=== PATIENT | male | born 1940 | race Caucasian/White ===

== ENCOUNTER 2017-03-11 09:10 | Day surgery (SDC) | payer OTHER ==
[~2017-03-11 09:10] MED LIST: CLINDAMYCIN 900 MG/DEXTROSE 50 ML IV ONE; DEXAMETHASONE 4 MG/ML VIAL IVP ONE
[2017-03-11] MEDS ORDERED: LIDOCAINE 1% 2 ML INJ ID PRN (09:34)
[2017-03-11] MEDS ORDERED: LR 1,000 ML IV ONE (09:34)
--- NOTE | 2017-03-11 09:41 | PDHPUP ---
History & Physical Update H&P update statement: This history and physical update is based on an assessment of the patient which was completed after admission or registration (within 24 hours), but prior to the surgery/procedure.
[2017-03-11] MEDS ORDERED: LIDO/EPI 1% **for epidural** 30 ML SDV ONE (09:50)
[2017-03-11] MEDS ORDERED: BUPIVACAINE 0.25% 30 ML SDV ONE (09:51)
[2017-03-11] MEDS ORDERED: CHLORHEXIDINE GLUCONATE 15 ML UDL ONE (09:52)
[2017-03-11] MEDS ORDERED: LIDO/EPI 2%** Not for Epidural 20 ML MDV ONE (09:53)
[2017-03-11] MEDS ORDERED: CLINDAMYCIN 900 MG/DEXTROSE/50 ML BAG IV ONE (09:54)
[2017-03-11] MEDS ORDERED: DEXAMETHASONE 4 MG/ML VIAL ONE ×2 (09:55→10:32)
--- NOTE | 2017-03-11 10:12 | PDANEPAE ---
ANE History of Present Illness excision oral bone lesion ANE Past Medical History - Cardiovascular History Hx Hypertension: No Hx Arrhythmias: No Hx Chest Pain: No Hx Coronary Artery / Peripheral Vascular Disease: No Hx CHF / Valvular Disease: No Hx Palpitations: No Cardiovascular History Comment: CARDIOMYOPATHY. LOW BP WHEN DEHYDRATED - Pulmonary History Hx COPD: No Hx Asthma/Reactive Airway Disease: No Hx Recent Upper Respiratory Infection: No Hx Oxygen in Use at Home: No Hx Sleep Apnea: No Sleep Apnea Screening Result - Last Documented: Positive Pulmonary History Comment: POS SLEEP APNEA W/CPAP - Neurologic History Hx Cerebrovascular Accident: No Hx Seizures: No Hx Dementia: No - Endocrine History Hx Diabetes: No - Renal History Hx Renal Disorders: No Renal History Comment: FREQUENCY - Liver History Hx Hepatic Disorders: Yes Hepatic History Comment: RADHA - Neurological & Psychiatric Hx Hx Neurological and Psychiatric Disorders: No - Cancer History Hx Cancer: No - Congenital Disorder History Hx Congenital Disorders: No - GI History Hx Gastrointestinal Disorders: No - Other Health History Other Health History: ECZEMA - Chronic Pain History Chronic Pain: Yes (NECK & BACK PAIN.) - Surgical History Prior Surgeries: CHOLECYSTECTOMY. COLONSOCOPY ANE Review of Systems Review of systems is: negative Review of Systems: - Exercise capacity Exercise capacity: >=4 METS METS (RN): 4 METS ANE Patient History - Allergies Allergies/Adverse Reactions: Penicillins Allergy (Verified 03/05/17 11:26) DIFFICULTY BREATHING shellfish derived Allergy (Verified 03/05/17 11:26) DIFFICULTY BREATHING Sulfa (Sulfonamide Antibiotics) Allergy (Verified 03/05/17 11:26) DIFFICULTY BREATHING - Home Medications Home medications: home medication list seen and reviewed Home Medications: Benadryl 03/05/17 [Last Taken Unknown] Coreg 03/05/17 [Last Taken 03/11/17 02:30] Herbals/Supplements -Info Only 03/05/17 [Last Taken Unknown] Ibuprofen 03/05/17 [Last Taken Unknown] Melatonin 03/05/17 [Last Taken 03/10/17] - NPO status NPO Status: no food or drink >8 hours NPO Since - Liquids (Date): 03/11/17 NPO Since - Liquids (Time): 07:30 NPO Since - Solids (Date): 03/10/17 NPO Since - Solids (Time): 20:00 - Anes Hx Anes Hx: no prior problems - Smoking Hx Smoking Status: Never smoked - Family Anes Hx Family Anes Hx: none Family Hx Anesthesia Complications: NEG ANE Labs/Vital Signs - Vital Signs Blood Pressure: 128/86 Heart Rate: 77 Respiratory Rate: 18 O2 Sat (%): 95 Height: 177.8 cm Weight: 113.398 kg ANE Physical Exam - Airway Neck exam: FROM Mallampati Score: Class 3 Mouth exam: poor dentition - Pulmonary Pulmonary: no respiratory distress - Cardiovascular Cardiovascular: regular rate and rhythym - ASA Status ASA Status: III ANE Anesthesia Plan Anesthesia Plan: general endotracheal anesthesia
[2017-03-11] MEDS ORDERED: MIDAZOLAM 2 MG/2 ML VIAL IVP ONE (10:21)
[2017-03-11] MEDS ORDERED: PROPOFOL 200 MG/20 ML VIAL ONE (10:32)
[2017-03-11] MEDS ORDERED: ONDANSETRON 4 MG/2 ML VIAL ONE (10:32)
[2017-03-11] MEDS ORDERED: LIDOCAINE 2% 100 MG/5 ML SYR ONE (10:32)
[2017-03-11] MEDS ORDERED: fentaNYL 100 MCG/2 ML INJ ONE (10:32)
[2017-03-11] MEDS ORDERED: ACETAMINOPHEN 500 MG TAB PO PRN (11:03)
[2017-03-11] MEDS ORDERED: HYDROmorphONE/DILAUDID 1 MG/ML INJ IVP PRN (11:03)
[2017-03-11] MEDS ORDERED: DEXAMETHASONE 4 MG/ML VIAL IVP PRN (11:03)
[2017-03-11] MEDS ORDERED: PROMETHAZINE HCL 25 MG/ML INJ IVP PRN (11:03)
[2017-03-11] MEDS ORDERED: fentaNYL 100 MCG/2 ML INJ IVP PRN (11:03)
[2017-03-11] MEDS ORDERED: OXYCODONE/APAP 5/325 TAB PO PRN (11:03)
[2017-03-11] MEDS ORDERED: MEPERIDINE 25 MG/ML SYR IVP PRN (11:03)
[2017-03-11] MEDS ORDERED: ONDANSETRON 4 MG/2 ML VIAL IVP PRN (11:03)
[2017-03-11] MEDS ORDERED: NALOXONE HCL 0.4 MG/ML INJ IVP PRN (11:03)
[2017-03-11] MEDS ORDERED: LABETALOL HCL 5 MG/ML 20 ML MDV IVP PRN (11:03)
[2017-03-11] MEDS ORDERED: HYDROCODONE/APAP 5/325 TAB PO PRN (11:03)
--- NOTE | 2017-03-11 11:06 | POSTANESTH ---
Post Anesthetic Evaluation Cardiovascular Status: Similar to Pre-Op Cond Respiratory Status: Similar to Pre-op Cond. Level of Consciousness/Mental Status: Can Participate in Eval, Mildly Sleepy, Arousable Pain Control: Adequate, Prn Tx Ordered Nausea/Vomiting Control: Adequate, Prn Tx Ordered Complications Possibly Related to Anesthesia: None Noted
--- NOTE | 2017-03-11 12:21 | POSTOPPROG ---
Post Op Note Date of Operation: 03/11/17 Surgeon: Camelia Cota Pre-op Diagnosis: left mandibular cyst Post-op Diagnosis: left mandibular cyst Procedure: Excision of left mandibular cyst with grafting Findings: left mandibular ramus cyst Inf/Abcess present in the surg proc area at time of surgery?: Yes Depth: Deep Incisional (Fascial) EBL: Minimal Complications: None Specimen(s): Left mandibular cyst
[2017-03-11] MEDS ORDERED: OXYCODONE/APAP 5/325 TAB ONE (12:49)
[2017-03-11] MEDS ORDERED: LABETALOL HCL 5 MG/ML 20 ML MDV ONE (13:18)
[2017-03-11 13:25] VITALS: PULSE 84
[2017-03-11 13:29] VITALS: TEMP 98.8; O2SAT 93
[2017-03-11 14:09] VITALS: RESP 15
[2017-03-11 14:10] VITALS: BP 118/80
--- NOTE | 2017-03-13 20:13 | SUROPNOTE ---
[facility] Operative Report - Surgery Name: Surendra Tinsley Date: March 11, 2017 Pre-operative diagnosis: left mandibular dentigerous cyst Post-operative diagnosis: left mandibular cyst Procedure: Excision of biopsy left mandible and bone grafting Surgeon: Camelia Cota DDS Anesthesia: GETA with local anesthesia of Lidocaine 2% with 1:100k epi left mandibular local infiltration EBL: minimal IVF: 1 liter crystalloid Findings: Left mandibular cyst encompassing left MYAH Drains: None Specimens: Left mandibular cyst to routine pathology Complications: None Benefits, risks, and alternatives were explained to the patient who voiced understanding of the information. HIs questions were sought and answered. Patient agreed to proceed with the procedure as planned. Consents were signed and witnessed by OR staff and all sites marked. The patient was brought into operating room #7 by OR staff. Monitors were placed which were, but not limited to, a blood pressure cuff, pulse-oximeter, and EKG. Once monitors were noticed to be functioning normally, Anesthesia teamed began to induce anesthetics to the patient for intubation procedures. The patient was intubated orally and tube taped to right side. Eyes closed and taped. A time out was called and all teams were in agreement of patient and procedure. A throat pack was placed. Mouth was brushed and cleaned with Peridex. Local anesthesia of 2% Lidocaine with 1:100k epi was administered via infiltration to left angle vestibule of the mandible. The patient was then prepped with betadine and drapped in sterile fashion. A bite block was placed and a Bovie electrocautery with a Morgan tip was used to create a distobuccal releasing incision from distal #19 mandibular ramus, dissecting the temporalis tendon. A #9 periosteal elevator was used to elevate the periosteum off the bone exposing previous surgical site where #17 tooth removed and exposing all of left mandibular retromolar region. Curette used to remove granulation tissue around the bony perimeter. Blunt dissection used with hemostat and curette used to dissect cyst wall from MYAH and vessels. Cyst lining removed in pieces due to friability. Curette used to ensure all good clean of soft tissue. Irrigated surgical site well with NS. MYAH and vessel intact. Wrapped MYAH and artery/vein with Surgicel dressing. Demineralized bone graft putty placed into surgical site gently and covered osteotomy with Surgicel. Primary closure of mucosa with 3-0 CG. Bite block removed, mouth cleaned with NS and throat pack removed with suction. Patients face was cleaned with wet and dry laps. Anesthesia Team proceeded to emerge the patient out of anesthesia. The patient was extubated in the operating room and taken to the PACU where the patient recovered uneventfully. Patient and family was given oral and verbal post-op instructions and discharged to home appropriate antibiotics and pain medications. Patient was also given post-op follow up with at [facility] in 1 week. Camelia Cota DDS
== END 2017-03-11 14:05 | disposition home or self-care (01) ==
LOC: FSGY 09:10
PROVIDERS: ATTEND Dentist General Practice
PROC: 0NBT0ZZ Excision of Right Mandible, Open Approach (ICD-10-PCS; principal; 2017-03-11 10:30)
DX: K09.0 Developmental odontogenic cysts (principal); G47.33 Obstructive sleep apnea (adult) (pediatric); I42.9 Cardiomyopathy, unspecified; Z88.0 Allergy status to penicillin
CPT/HCPCS: C1713; J0171; J1100; J2001; J2250; J2405; J2704; J3010; J3490